=== PATIENT | female | born 1950 | race Caucasian/White ===

== ENCOUNTER 2020-02-24 18:08 | Emergency (ER) | payer MEDICAID, OTHER ==
[~2020-02-24] VITALS: Ht 162.6 cm; Wt 86.9 kg
[~2020-02-24 18:08] MED LIST: CIPR500T3 PO; METF500T17 PO; METR500T PO; OXYC5CAP2 PO
--- NOTE | 2020-02-24 19:41 | NUR ---
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
--- NOTE | 2020-02-24 19:48 | NUR ---
PATIENT AND FAMILY TAKEN BACK TO ROOM AND THEN FAMILY WHEELED PATIENT TO RESTROOM.
--- NOTE | 2020-02-24 20:05 | NUR ---
PATIENT PLACED IN HOSPITAL GOWN, PATIENT IS [place] SPEAKING, DAUGHTER HERE TO TRANSLATE. PATIENT STATES NO S/S OF DISRESS, AND PLACED ON MONITORS.
[2020-02-24 20:37] LABS: BASOPHILS # (AUTO) 0.03 x10^3/uL (0-0.1); BASOPHILS % (AUTO) 0 % (0-1); EOSINOPHILS # (AUTO) 0.12 x10^3/uL (0-0.4); EOSINOPHILS % (AUTO) 1 % (1-7); LYMPHOCYTES # (AUTO) 2.39 x10^3/uL (1-3.4); LYMPHOCYTES % (AUTO) 27 % (22-44); MD NO; MEAN CORPUSCULAR HEMOGLOBIN 30.3 pg (27.0-34.8); MEAN CORPUSCULAR HGB CONC 33.2 g/dL (32.4-35.8); MEAN CORPUSCULAR VOLUME 91.3 fL (80-100); MEAN PLATELET VOLUME 8.7 fL (7.4-10.4); MONOCYTES # (AUTO) 0.65 x10^3/uL (0.2-0.8); MONOCYTES % (AUTO) 7 % (2-9); NEUTROPHILS # (AUTO) 5.68 x10^3/uL (1.8-6.8); NEUTROPHILS % (AUTO) 64 % (42-75); PLATELET COUNT 364 x10^3/uL (130-400); RED BLOOD COUNT 4.85 x10^6/uL (3.82-5.3); RED CELL DISTRIBUTION WIDTH 13.3 % (9.6-15.2)
[2020-02-24 20:44] LABS: ALBUMIN 3.8 g/dL (3.4-5.0); ANION GAP 9 mmol/L (5-15); CALCIUM 9.6 mg/dL (8.5-10.1); CHLORIDE 102 mmol/L (98-107); CREATININE 0.55 mg/dL (0.55-1.02)
[2020-02-24] MEDS ORDERED: POTASSIUM CHLORIDE 20 MEQ TAB.ER.PRT PO ONE (21:00)
[2020-02-24] MEDS ORDERED: POTASSIUM CHLORIDE 20 MEQ TAB.ER.PRT ONE (21:20)
[2020-02-24 21:29] VITALS: BP 190/71
== END 2020-02-24 21:38 | disposition home or self-care (01) ==
LOC: ED 20:21
DX: I10 Essential (primary) hypertension (principal); E87.6 Hypokalemia; R07.9 Chest pain, unspecified; R94.31 Abnormal electrocardiogram [ECG] [EKG]
CPT/HCPCS: 36415; 71045; 80048; 82040; 85025; 93005; 99285